=== PATIENT | male | born 1955 | race Caucasian/White ===

== ENCOUNTER → 2019-06-15 | Outpatient (CLI) | payer BC, OTHER, SELFPAY ==
[~2019-06-15] MED LIST: ALEV220T22 PO; ASPI81CH48 PO; BIOT1CAP2 PO; COQ-100C5 PO; FLON1SPR; LISI20TA19 PO; MULTCAP PO; ODOR100T3 PO; SING10TA32 PO; VITAD1000T PO
== END ==
LOC: M LABSMTC 13:18
PROVIDERS: ATTEND Anesthesiology
DX: Z01.818 Encounter for other preprocedural examination (principal); Z11.59 Encounter for screening for other viral diseases

== ENCOUNTER 2019-06-18 08:01 | Day surgery (SDC) | payer OTHER ==
[~2019-06-18] VITALS: Ht 175.3 cm; Wt 90.3 kg
[~2019-06-18 08:01] MED LIST changes: +LIDOCAINE 1% MDV 20ML VIAL SQ PRN; +LR 1,000 ML IV ONE; +ceFAZolin SOD 1 GM in D5W MINI-BAG PLUS 50 ML IV ONE
[2019-06-18] MEDS ORDERED: LIDOCAINE 2% 100MG/5ML SDV (FOR ANES.) As Ordered ONE (08:09)
[2019-06-18] MEDS ORDERED: ROCURONIUM BROMIDE 50 MG/5 ML VIAL As Ordered ONE ×2 (08:09→09:37)
[2019-06-18] MEDS ORDERED: ONDANSETRON 4MG/2ML VIAL As Ordered ONE (08:09)
[2019-06-18] MEDS ORDERED: fentaNYL 250 MCG/5 ML INJECTION (J3010) As Ordered ONE (08:09)
[2019-06-18] MEDS ORDERED: dexameTHASONE 4 MG/ML 1ML VIAL (J1100 PER 1MG) As Ordered ONE (08:09)
[2019-06-18] MEDS ORDERED: MIDAZOLAM INJ 2MG/2ML VIAL (J2250 PER 1MG) As Ordered ONE (08:09)
[2019-06-18] MEDS ORDERED: propofoL 200 MG/20 ML VIAL As Ordered ONE (08:09)
[2019-06-18] MEDS ORDERED: BUPIVACAINE/EPIN 0.25% 30 ML VIAL As Ordered ONE (08:46)
[2019-06-18] MEDS ORDERED: SUGAMMADEX SODIUM 500 MG/5 ML VIAL (BRIDION) As Ordered ONE (09:35)
[2019-06-18] MEDS ORDERED: KETOROLAC 60 MG/2 ML VIAL As Ordered ONE (09:35)
[2019-06-18] MEDS ORDERED: ACETAMINOPHEN 1000MG 100ML IV BTL (OFIRMEV) (J0131 PER 10MG) As Ordered ONE (09:38)
--- NOTE | 2019-06-18 10:29 | RO ---
DATE OF PROCEDURE: 06/18/2019 PREOPERATIVE DIAGNOSIS: Right inguinal hernia. POSTOPERATIVE DIAGNOSIS: Right inguinal hernia (indirect). PROCEDURE: Robotic assisted right inguinal hernia repair with ProGrip mesh. SURGEON: Dr. Jack Castellanos DEMAND PLANNING MANAGER: Celeste Riley (provided instrument exchange, trocar placement and trocar closure) ANESTHESIA: General endotracheal anesthesia. ESTIMATED BLOOD LOSS: Minimal. FLUIDS: Crystalloid. BRIEF PROCEDURE SUMMARY: The patient was brought to the operating room and was given general anesthesia. After adequate anesthesia and preoperative antibiotics were given, the patient was prepped and draped in the usual sterile fashion. Next, a supraumbilical incision was made with skin knife. Blunt dissection was carried down to fascia. Veress needle inserted into the abdominal cavity and insufflated to 15 mm of pressure. A dilating 8 mm trocar was placed at this time under direct visualization. Two lateral 8 mm trocars were placed and the patient was placed in steep Trendelenburg. The hernia was reduced. The peritoneum was taken down with monopolar cut scissors. The patient had a very attenuated peritoneum in this area, but we were able to get this down without making a rent in the peritoneum itself. This was mobilized off the cord structures and there was also small lipoma of the cord that was mobilized with this tissue as well. In any case, Darin's was evaluated, lateral border of pubis was seen and then the ProGrip mesh was placed in the preperitoneal space, taking care to cover the Darin's ligament, internal ring and where the vessels in the vas dove deep. This was cut to allow the mesh to fall down into the pelvis nicely. Once this was in the appropriate position, the peritoneum was closed with running #3-0 V-Loc. All trocars were removed under direct visualization. #4-0 Vicryl was used to close all incisions. Steri-Strips and a dry sterile dressing was applied. The patient was awakened, extubated and brought to the recovery room awake, alert and hemodynamically stable. Sponge and needle counts were correct x2.
[2019-06-18] MEDS ORDERED: fentaNYL 100 MCG/2 ML INJECTION (J3010) IV PRN (10:45)
[2019-06-18] MEDS ORDERED: LR 1,000 ML IV SCH (10:45)
[2019-06-18] MEDS ORDERED: ONDANSETRON 4MG/2ML VIAL IV PRN (10:45)
[2019-06-18] MEDS ORDERED: HYDROMORPHONE HCL 0.5 MG/ 0.5 ML SYRINGE (J1170 PER 1) IV PRN (10:45)
[2019-06-18] MEDS ORDERED: oxyCODONE 5MG TAB PO PRN (10:45)
[2019-06-18 12:40] VITALS: BP 144/78
--- NOTE | 2019-06-18 19:37 | ECGEPIP ---
[facility] Test Date: 2019-06-18 Pat Name: MARTIN NEFF Department: Room: - Gender: Male Change Management Expert: RF : [id number] Requested By: TOOTIE Degroot Order Number: [id number] Reading MD: Zenon Ureña Measurements Intervals [place] Rate: 68 P: -41 DC: 165 QRS: 29 QRSD: 89 T: 40 QT: 365 QTc: 389 Interpretive Statements Normal sinus rhythm Normal EKG Comparison tracing not on file Electronically Signed on 06-18-2019 19:36:44 EDT by Zenon Ureña
== END 2019-06-18 12:50 | disposition home or self-care (01) ==
LOC: M SDC 08:01
PROVIDERS: ATTEND Surgery
DX: K40.90 Unilateral inguinal hernia, without obstruction or gangrene, not specified as recurrent (principal); I10 Essential (primary) hypertension; M19.90 Unspecified osteoarthritis, unspecified site; Z79.899 Other long term (current) drug therapy; Z79.82 Long term (current) use of aspirin; Z79.1 Long term (current) use of non-steroidal anti-inflammatories (NSAID)
CPT/HCPCS: 49650; 93005; C1781; J0131; J0690; J1100; J1885; J2250; J2405; J3010